=== PATIENT | male | born 1950 | race Caucasian/White ===

== ENCOUNTER 2021-05-11 11:48 | Inpatient (IN) | payer OTHER ==
[2021-05-11 12:42] VITALS: BMI 36.4
[2021-05-11] MEDS ORDERED: SODIUM CHLORIDE 0.9% 500 ML INFUS.BAG IV ONE (13:19)
[2021-05-11 13:28] LABS: VENOUS BASE EXCESS -5.8 mmol/L (-2-2); VENOUS O2 SATURATION 38.7 % (70-80); VENOUS PCO2 42.8 mmHg (38-52); VENOUS PH 7.298 (7.310-7.410)
[2021-05-11 13:29] LABS: BASO % 1.2 % (0-2.0); EOS % 0.7 % (0-4.5); HEMATOCRIT 42.4 % (35.4-49); HEMOGLOBIN 14.1 GM/dL (11.7-16.9); LYMPH % 21.3 % (8-40); MCH 30.7 pg (25.7-33.7); MCHC 33.1 g/dl (32.0-35.9); MEAN CELL VOLUME 92.6 fl (80-96); MEAN PLT VOLUME 8.2 fl (7.5-11.1); NEUT % 64.8 % (42.8-82.8); PLATELET COUNT 313 10^3/uL (134-434); RBC 4.58 M/mm3 (4.00-5.60); WHITE BLOOD COUNT 5.6 K/mm3 (4.0-10.0)
[2021-05-11 13:37] LABS: INR 2.64 (0.83-1.09); PROTHROMBIN TIME (PATIENT) 30.7 SEC (9.7-13.0)
[2021-05-11 13:39] LABS: ACTIVATED PTT 37.9 SECONDS (25.2-36.5)
[2021-05-11] MEDS ORDERED: WATER IVPB ONE (13:39)
[2021-05-11] MEDS ORDERED: DEXTROSE 5% IVPB ONE (13:39)
[2021-05-11] MEDS ORDERED: VANCOMYCIN IVPB ONE (13:39)
[2021-05-11] MEDS ORDERED: PIPERACILLIN/TAZOB 4.5 GM 4.5 GM in DEXTROSE 5%-WATER 100 ML IVPB ONE (13:39)
[2021-05-11] MEDS ORDERED: VANCOMYCIN 2,000 MG in DEXTROSE 5%-WATER - 500 ML IVPB ONE (13:47)
[2021-05-11] MEDS ORDERED: PIPERACILLIN/TAZOB 4.5 GM 4.5 GM/100 ML BAG IVPB ONE (13:49)
[2021-05-11 14:20] LABS: BLOOD UREA NITROGEN 30.9 mg/dL (7-18); CALCIUM 9.1 mg/dL (8.5-10.1); MAGNESIUM 2.2 mg/dL (1.8-2.4)
[2021-05-11 14:23] LABS: CREATININE 3.2 mg/dL (0.55-1.3)
[2021-05-11 14:25] LABS: BILIRUBIN,TOTAL 1.1 mg/dL (0.2-1); TOT PROT 6.4 g/dl (6.4-8.2)
[2021-05-11 14:30] LABS: LACTIC ACID 5.2 mmol/L (0.4-2.0)
[2021-05-11 14:33] LABS: ANISOCYTOSIS 1+; MACROCYTOSIS 0; PLATELET ESTIMATE NORMAL
[2021-05-11] MEDS ORDERED: SODIUM CHLORIDE 1,000 ML IV SCH ×3 (15:00→15:52)
[2021-05-11 16:43] LABS: EPI CELLS 24 /uL (0-25.1); HYALINE CASTS 11 /uL (0-3.1); URINE APPEARANCE CLEAR; URINE BACTERIA 6 /uL (0-1359); URINE BILIRUBIN NEGATIVE (NEGATIVE); URINE COLOR YELLOW; URINE GLUCOSE (UA) NEGATIVE (NEGATIVE); URINE KETONE TRACE (NEGATIVE); URINE LEUK ESTERASE TRACE (NEGATIVE); URINE NITRITE NEGATIVE (NEGATIVE); URINE PROTEIN 2+ (NEGATIVE); URINE RBC 9 /uL (0-23.9); URINE UROBILINOGEN 0.2 mg/dL (0.2-1.0); URINE WBC 61 /uL (0-25.8)
[2021-05-11 17:11] LABS: LACTIC ACID 3.8 mmol/L (0.4-2.0)
[2021-05-11] MEDS ORDERED: PIPERACILLIN/TAZOB 2.25 GM 2.25 GM/50 ML BAG IVPB ONE (21:14)
[2021-05-11] MEDS: PIPERACILLIN/TAZOB 2.25 GM 2.25 GM in DEXTROSE 5%-WATER - 50 ML IVPB SCH (21:16)
[2021-05-11] MEDS: HEPARIN NA (PORCINE) 5,000 UNITS/ML 1ML VIAL SQ SCH (23:07)
[2021-05-11] MEDS ORDERED: HEPARIN NA (PORCINE) 5,000 UNITS/ML 1ML VIAL ONE (23:13)
[2021-05-12] MEDS: PIPERACILLIN/TAZOB 2.25 GM 2.25 GM in DEXTROSE 5%-WATER - 50 ML IVPB SCH ×3 (03:20→19:52)
[2021-05-12] MEDS ORDERED: HEPARIN NA (PORCINE) 5,000 UNITS/ML 1ML VIAL ONE (09:10)
[2021-05-12] MEDS ORDERED: PIPERACILLIN/TAZOB 2.25 GM 2.25 GM/50 ML BAG IVPB ONE ×2 (09:10→19:29)
[2021-05-12] MEDS: HEPARIN NA (PORCINE) 5,000 UNITS/ML 1ML VIAL SQ SCH (09:17)
[2021-05-12] MEDS ORDERED: amLODIPine BESYLATE 5 MG TABLET (FP) PO SCH (10:00)
[2021-05-12 10:46] LABS: ALBUMIN 3.3 g/dl (3.4-5.0)
[2021-05-12 10:50] LABS: BLOOD UREA NITROGEN 28.4 mg/dL (7-18); MAGNESIUM 2.1 mg/dL (1.8-2.4)
[2021-05-12 10:54] LABS: BILIRUBIN,TOTAL 0.9 mg/dL (0.2-1); PHOSPHOROUS 4.5 mg/dL (2.5-4.9); TOT PROT 6.4 g/dl (6.4-8.2)
[2021-05-12 10:56] LABS: EOS % 3.1 % (0-4.5); HEMATOCRIT 45.7 % (35.4-49); HEMOGLOBIN 14.9 GM/dL (11.7-16.9); MCH 30.9 pg (25.7-33.7); MCHC 32.7 g/dl (32.0-35.9); MEAN CELL VOLUME 94.7 fl (80-96); MEAN PLT VOLUME 8.1 fl (7.5-11.1); MONO % 12.6 % (3.8-10.2); NEUT % 49.3 % (42.8-82.8); PLATELET COUNT 300 10^3/uL (134-434); RBC 4.83 M/mm3 (4.00-5.60); RDW 17.7 % (11.9-15.9); WHITE BLOOD COUNT 6.2 K/mm3 (4.0-10.0)
[2021-05-12 11:13] LABS: URIC ACID 13.8 mg/dL (2.6-7.2)
[2021-05-12] MEDS ORDERED: CARVEDILOL 12.5 MG TABLET (FP) ONE (12:46)
[2021-05-12] MEDS: CARVEDILOL 25 MG TABLET (FP) PO SCH ×2 (12:51→22:32)
[2021-05-12] MEDS ORDERED: SODIUM CHLORIDE 1,000 ML IV SCH (13:15)
[2021-05-12] MEDS: SODIUM BICARBONATE 650 MG TABLET PO SCH ×2 (15:37→22:32)
[2021-05-12] MEDS: ATORVASTATIN CA 40 MG TABLET (FP) PO SCH (22:32)
[2021-05-12] MEDS: APIXABAN 5 MG TABLET PO SCH (22:32)
[2021-05-13] MEDS: LATANOPROST 0.005% OPHTH SOLN 2.5ML BOTTLE OU SCH ×2 (00:21→21:45)
[2021-05-13] MEDS ORDERED: PIPERACILLIN/TAZOBACTAM 2.25 GM VIAL IVPB ONE ×3 (01:30→17:34)
[2021-05-13] MEDS ORDERED: DEXTROSE 5%-WATER - 50 ML IVPB ONE ×3 (01:31→17:34)
[2021-05-13] MEDS: PIPERACILLIN/TAZOB 2.25 GM 2.25 GM in DEXTROSE 5%-WATER - 50 ML IVPB SCH ×3 (02:32→17:43)
[2021-05-13] MEDS: SODIUM BICARBONATE 650 MG TABLET PO SCH ×3 (05:05→21:20)
[2021-05-13 09:04] LABS: BASO % 1.5 % (0-2.0); EOS % 2.7 % (0-4.5); HEMATOCRIT 40.8 % (35.4-49); LYMPH % 26.7 % (8-40); MCH 30.1 pg (25.7-33.7); MEAN CELL VOLUME 94.2 fl (80-96); MEAN PLT VOLUME 8.5 fl (7.5-11.1); MONO % 10.9 % (3.8-10.2); NEUT % 58.2 % (42.8-82.8); PLATELET COUNT 342 10^3/uL (134-434); RBC 4.33 M/mm3 (4.00-5.60); RDW 17.4 % (11.9-15.9); WHITE BLOOD COUNT 6.5 K/mm3 (4.0-10.0)
[2021-05-13 09:12] LABS: CHLORIDE 110 mmol/L (98-107); SODIUM 142 mmol/L (136-145)
[2021-05-13 09:14] LABS: CALCIUM 9.1 mg/dL (8.5-10.1)
[2021-05-13 09:15] LABS: ANION GAP 11 MMOL/L (8-16); BLOOD UREA NITROGEN 27.6 mg/dL (7-18); CO2 22 mmol/L (21-32); GLUCOSE,RANDOM 129 mg/dL (74-106); MAGNESIUM 2.1 mg/dL (1.8-2.4)
[2021-05-13 09:17] LABS: SGPT/ALT 19 U/L (13-61)
[2021-05-13 09:18] LABS: CREATININE 2.8 mg/dL (0.55-1.3); PHOSPHOROUS 3.8 mg/dL (2.5-4.9); SGOT/AST 21 U/L (15-37)
[2021-05-13 09:19] LABS: BILIRUBIN,TOTAL 1.2 mg/dL (0.2-1)
[2021-05-13 09:24] LABS: ALK PHOS 157 U/L (45-117); URIC ACID 13.6 mg/dL (2.6-7.2)
[2021-05-13 09:36] LABS: LACTIC ACID 3.4 mmol/L (0.4-2.0)
[2021-05-13] MEDS: APIXABAN 5 MG TABLET PO SCH ×2 (09:39→21:20)
[2021-05-13] MEDS: CARVEDILOL 25 MG TABLET (FP) PO SCH ×2 (09:39→21:20)
[2021-05-13] MEDS ORDERED: SODIUM CHLORIDE 1,000 ML IV SCH (14:30)
[2021-05-13] MEDS ORDERED: METOPROLOL TARTRATE 5 MG/5 ML VIAL IVPUSH PRN (14:54)
[2021-05-13] MEDS: ALLOPURINOL 100 MG TABLET (FP) PO SCH (15:57)
[2021-05-13] MEDS: ACETAMINOPHEN 325 MG TABLET (FP) PO PRN (16:04)
[2021-05-13] MEDS: ATORVASTATIN CA 40 MG TABLET (FP) PO SCH (21:20)
[2021-05-14] MEDS ORDERED: PIPERACILLIN/TAZOBACTAM 2.25 GM VIAL IVPB ONE ×3 (01:03→17:41)
[2021-05-14] MEDS ORDERED: DEXTROSE 5%-WATER - 50 ML IVPB ONE ×3 (01:03→17:41)
[2021-05-14] MEDS: PIPERACILLIN/TAZOB 2.25 GM 2.25 GM in DEXTROSE 5%-WATER - 50 ML IVPB SCH ×3 (01:15→18:22)
[2021-05-14] MEDS: SODIUM BICARBONATE 650 MG TABLET PO SCH ×3 (05:53→22:00)
[2021-05-14 08:02] LABS: BASO % 1.2 % (0-2.0); EOS % 2.7 % (0-4.5); HEMATOCRIT 39.4 % (35.4-49); HEMOGLOBIN 12.3 GM/dL (11.7-16.9); LYMPH % 21.8 % (8-40); MCH 29.5 pg (25.7-33.7); MCHC 31.2 g/dl (32.0-35.9); MEAN CELL VOLUME 94.4 fl (80-96); MEAN PLT VOLUME 8.3 fl (7.5-11.1); MONO % 14.7 % (3.8-10.2); NEUT % 59.6 % (42.8-82.8); PLATELET COUNT 288 10^3/uL (134-434); RBC 4.17 M/mm3 (4.00-5.60); RDW 17.7 % (11.9-15.9); WHITE BLOOD COUNT 5.3 K/mm3 (4.0-10.0)
[2021-05-14 08:13] LABS: CALCIUM 8.8 mg/dL (8.5-10.1)
[2021-05-14 08:14] LABS: ALBUMIN 2.7 g/dl (3.4-5.0)
[2021-05-14 08:16] LABS: CREATININE 2.6 mg/dL (0.55-1.3); PHOSPHOROUS 3.1 mg/dL (2.5-4.9)
[2021-05-14 08:18] LABS: BILIRUBIN,TOTAL 1.2 mg/dL (0.2-1); TOT PROT 5.5 g/dl (6.4-8.2)
[2021-05-14] MEDS: CARVEDILOL 25 MG TABLET (FP) PO SCH ×2 (11:17→22:00)
[2021-05-14] MEDS: ALLOPURINOL 100 MG TABLET (FP) PO SCH (11:17)
[2021-05-14] MEDS: APIXABAN 5 MG TABLET PO SCH ×2 (11:17→22:00)
[2021-05-14] MEDS: SODIUM CHLORIDE 0.45% 1,000 ML IV SCH (18:22)
[2021-05-14] MEDS: LATANOPROST 0.005% OPHTH SOLN 2.5ML BOTTLE OU SCH (22:00)
[2021-05-14] MEDS: ATORVASTATIN CA 40 MG TABLET (FP) PO SCH (22:00)
[2021-05-15] MEDS ORDERED: DEXTROSE 5%-WATER - 50 ML IVPB ONE ×3 (01:32→17:28)
[2021-05-15] MEDS ORDERED: PIPERACILLIN/TAZOBACTAM 2.25 GM VIAL IVPB ONE ×3 (01:32→17:28)
[2021-05-15] MEDS: PIPERACILLIN/TAZOB 2.25 GM 2.25 GM in DEXTROSE 5%-WATER - 50 ML IVPB SCH ×3 (03:37→17:57)
[2021-05-15] MEDS: SODIUM BICARBONATE 650 MG TABLET PO SCH ×3 (06:54→22:28)
[2021-05-15] MEDS: CARVEDILOL 25 MG TABLET (FP) PO SCH ×2 (10:52→22:28)
[2021-05-15] MEDS: APIXABAN 5 MG TABLET PO SCH ×2 (10:52→22:28)
[2021-05-15] MEDS: ACETAMINOPHEN 325 MG TABLET (FP) PO PRN ×2 (10:52→17:57)
[2021-05-15] MEDS: ALLOPURINOL 100 MG TABLET (FP) PO SCH (10:53)
[2021-05-15 12:47] LABS: ARTERIAL BLD GAS O2 SATURATION 98.3 % (95-98); ARTERIAL BLOOD GAS BASE EXCESS -4.6 mmol/L (-2-2); ARTERIAL BLOOD GAS PO2 115.8 mmHg (80-100)
[2021-05-15 12:49] LABS: ALLENS TEST POSITIVE
[2021-05-15] MEDS: POLYETHYLENE GLYCOL (HEALTHYLAX) 3350 17 GM PACKET PO SCH (17:57)
[2021-05-15] MEDS: LATANOPROST 0.005% OPHTH SOLN 2.5ML BOTTLE OU SCH (22:28)
[2021-05-15] MEDS: ATORVASTATIN CA 40 MG TABLET (FP) PO SCH (22:28)
[2021-05-15] MEDS: SODIUM CHLORIDE 0.45% 1,000 ML IV SCH (22:28)
[2021-05-15] MEDS: LORazepam 2 MG/ML SDV VIAL IVPUSH PRN (22:33)
[2021-05-16] MEDS: PIPERACILLIN/TAZOB 2.25 GM 2.25 GM in DEXTROSE 5%-WATER - 50 ML IVPB SCH ×3 (04:00→18:22)
[2021-05-16] MEDS ORDERED: DEXTROSE 5%-WATER - 50 ML IVPB ONE ×3 (04:04→18:10)
[2021-05-16] MEDS ORDERED: PIPERACILLIN/TAZOBACTAM 2.25 GM VIAL IVPB ONE ×3 (04:04→18:10)
[2021-05-16] MEDS: SODIUM BICARBONATE 650 MG TABLET PO SCH ×3 (05:21→21:50)
[2021-05-16] MEDS: LORazepam 2 MG/ML SDV VIAL IVPUSH PRN ×2 (08:43→22:43)
[2021-05-16 08:59] LABS: HEMATOCRIT 41.3 % (35.4-49); HEMOGLOBIN 12.8 GM/dL (11.7-16.9); MCH 30.1 pg (25.7-33.7); MCHC 31.1 g/dl (32.0-35.9); MEAN CELL VOLUME 96.9 fl (80-96); MEAN PLT VOLUME 8.1 fl (7.5-11.1); PLATELET COUNT 276 10^3/uL (134-434); RBC 4.26 M/mm3 (4.00-5.60); RDW 18.4 % (11.9-15.9); WHITE BLOOD COUNT 6.2 K/mm3 (4.0-10.0)
[2021-05-16 09:28] LABS: ALBUMIN 2.8 g/dl (3.4-5.0); BLOOD UREA NITROGEN 26.1 mg/dL (7-18); CALCIUM 8.7 mg/dL (8.5-10.1)
[2021-05-16 09:31] LABS: CREATININE 2.6 mg/dL (0.55-1.3)
[2021-05-16 09:32] LABS: LACTIC ACID 2.7 mmol/L (0.4-2.0)
[2021-05-16 09:33] LABS: BILIRUBIN,TOTAL 1.1 mg/dL (0.2-1); TOT PROT 5.8 g/dl (6.4-8.2)
[2021-05-16 09:54] LABS: ANISOCYTOSIS 0; HELMET CELLS 0; HOWELL-JOLLY BODIES 0; MACROCYTOSIS 0; OVALOCYTE 0; PLATELET ESTIMATE NORMAL; ROULEAU 0; SICKELED CELLS 0; TARGET CELLS 0; TEAR DROP CELLS 0; TOXIC GRANULATION 0
[2021-05-16] MEDS: ALLOPURINOL 100 MG TABLET (FP) PO SCH (11:22)
[2021-05-16] MEDS: CARVEDILOL 25 MG TABLET (FP) PO SCH ×2 (11:22→21:49)
[2021-05-16] MEDS: POLYETHYLENE GLYCOL (HEALTHYLAX) 3350 17 GM PACKET PO SCH (11:22)
[2021-05-16] MEDS: APIXABAN 5 MG TABLET PO SCH ×2 (11:22→21:49)
[2021-05-16] MEDS: SODIUM CHLORIDE 0.45% 1,000 ML IV SCH (18:22)
[2021-05-16] MEDS: ATORVASTATIN CA 40 MG TABLET (FP) PO SCH (21:49)
[2021-05-16] MEDS: LATANOPROST 0.005% OPHTH SOLN 2.5ML BOTTLE OU SCH (21:51)
[2021-05-17] MEDS ORDERED: PIPERACILLIN/TAZOBACTAM 2.25 GM VIAL IVPB ONE ×2 (01:08→09:36)
[2021-05-17] MEDS ORDERED: DEXTROSE 5%-WATER - 50 ML IVPB ONE ×2 (01:09→09:36)
[2021-05-17] MEDS: PIPERACILLIN/TAZOB 2.25 GM 2.25 GM in DEXTROSE 5%-WATER - 50 ML IVPB SCH ×2 (01:12→10:00)
[2021-05-17] MEDS: SODIUM BICARBONATE 650 MG TABLET PO SCH ×3 (06:13→21:08)
[2021-05-17 07:28] LABS: BASO % 2.7 % (0-2.0); EOS % 1.5 % (0-4.5); HEMATOCRIT 42.5 % (35.4-49); HEMOGLOBIN 13.2 GM/dL (11.7-16.9); LYMPH % 28.8 % (8-40); MCH 29.9 pg (25.7-33.7); MEAN CELL VOLUME 96.5 fl (80-96); MEAN PLT VOLUME 8.2 fl (7.5-11.1); MONO % 12.7 % (3.8-10.2); NEUT % 54.3 % (42.8-82.8); PLATELET COUNT 269 10^3/uL (134-434); RDW 18.4 % (11.9-15.9); WHITE BLOOD COUNT 6.9 K/mm3 (4.0-10.0)
[2021-05-17] MEDS: CARVEDILOL 25 MG TABLET (FP) PO SCH ×2 (10:00→21:08)
[2021-05-17] MEDS: ALLOPURINOL 100 MG TABLET (FP) PO SCH (10:00)
[2021-05-17] MEDS: POLYETHYLENE GLYCOL (HEALTHYLAX) 3350 17 GM PACKET PO SCH ×2 (10:00→10:10)
[2021-05-17] MEDS: APIXABAN 5 MG TABLET PO SCH ×2 (10:00→21:08)
[2021-05-17] MEDS ORDERED: POLYETHYLENE GLYCOL (HEALTHYLAX) 3350 17 GM PACKET PO PRN (10:58)
[2021-05-17] MEDS ORDERED: ALBUTEROL SO4 HFA INHALER IH PRN (10:59)
[2021-05-17 11:51] LABS: LACTIC ACID 2.6 mmol/L (0.4-2.0)
[2021-05-17 11:54] LABS: CHLORIDE 87 mmol/L (98-107); SODIUM 132 mmol/L (136-145)
[2021-05-17 11:57] LABS: ALBUMIN 2.3 g/dl (3.4-5.0); ANION GAP 24 MMOL/L (8-16); BLOOD UREA NITROGEN 24.7 mg/dL (7-18); CO2 20 mmol/L (21-32); MAGNESIUM 1.8 mg/dL (1.8-2.4)
[2021-05-17 11:59] LABS: URIC ACID 9.3 mg/dL (2.6-7.2)
[2021-05-17 12:00] LABS: CREATININE 2.6 mg/dL (0.55-1.3); PHOSPHOROUS 3.6 mg/dL (2.5-4.9); SGOT/AST 16 U/L (15-37); SGPT/ALT 15 U/L (13-61)
[2021-05-17 12:01] LABS: BILIRUBIN,TOTAL 0.8 mg/dL (0.2-1)
[2021-05-17 12:02] LABS: TOT PROT 5.8 g/dl (6.4-8.2)
[2021-05-17 12:03] LABS: ALK PHOS 140 U/L (45-117)
[2021-05-17 12:06] LABS: CALCIUM 7.3 mg/dL (8.5-10.1); GLUCOSE,RANDOM 725 mg/dL (74-106)
[2021-05-17] MEDS ORDERED: POTASSIUM CHLORIDE ORAL LIQUID 20 MEQ/15 ML PO ONE (12:30)
[2021-05-17 14:27] LABS: BLOOD UREA NITROGEN 28.5 mg/dL (7-18)
[2021-05-17 14:30] LABS: CREATININE 2.7 mg/dL (0.55-1.3)
[2021-05-17 14:34] LABS: ALBUMIN 2.9 g/dl (3.4-5.0); CALCIUM 8.9 mg/dL (8.5-10.1); LACTIC ACID 2.5 mmol/L (0.4-2.0)
[2021-05-17] MEDS: ATORVASTATIN CA 40 MG TABLET (FP) PO SCH (21:08)
[2021-05-17] MEDS: LATANOPROST 0.005% OPHTH SOLN 2.5ML BOTTLE OU SCH (21:09)
[2021-05-17] MEDS: LORazepam 2 MG/ML SDV VIAL IVPUSH PRN (22:00)
[2021-05-18] MEDS: SODIUM BICARBONATE 650 MG TABLET PO SCH ×3 (05:54→21:32)
[2021-05-18] MEDS: APIXABAN 5 MG TABLET PO SCH ×2 (09:59→21:31)
[2021-05-18] MEDS: ALLOPURINOL 100 MG TABLET (FP) PO SCH (09:59)
[2021-05-18] MEDS: CARVEDILOL 25 MG TABLET (FP) PO SCH ×2 (09:59→21:31)
[2021-05-18] MEDS ORDERED: SACUBITRIL/VALSARTAN 24 MG-26 MG TABLET PO SCH (10:15)
[2021-05-18] MEDS ORDERED: SACUBITRIL/VALSARTAN 49 MG-51 MG TABLET PO SCH (10:15)
[2021-05-18] MEDS: TORSEMIDE 20 MG TABLET (FP) PO SCH (13:55)
[2021-05-18] MEDS: ATORVASTATIN CA 40 MG TABLET (FP) PO SCH (21:31)
[2021-05-18] MEDS: LATANOPROST 0.005% OPHTH SOLN 2.5ML BOTTLE OU SCH (21:32)
[2021-05-18] MEDS ORDERED: QUEtiapine FUMARATE 25 MG TABLET PO SCH (22:00)
[2021-05-19] MEDS: SODIUM BICARBONATE 650 MG TABLET PO SCH ×3 (06:55→21:12)
[2021-05-19 08:29] LABS: CALCIUM 8.4 mg/dL (8.5-10.1)
[2021-05-19 08:30] LABS: ALBUMIN 2.6 g/dl (3.4-5.0); BLOOD UREA NITROGEN 25.7 mg/dL (7-18); MAGNESIUM 1.8 mg/dL (1.8-2.4)
[2021-05-19 08:32] LABS: PHOSPHOROUS 2.8 mg/dL (2.5-4.9)
[2021-05-19 08:33] LABS: CREATININE 2.3 mg/dL (0.55-1.3)
[2021-05-19 08:34] LABS: TOT PROT 5.6 g/dl (6.4-8.2)
[2021-05-19 08:35] LABS: BASO % 5.9 % (0-2.0); EOS % 3.1 % (0-4.5); HEMOGLOBIN 13.6 GM/dL (11.7-16.9); LYMPH % 26.2 % (8-40); MCHC 31.7 g/dl (32.0-35.9); MEAN CELL VOLUME 94.8 fl (80-96); MEAN PLT VOLUME 8.4 fl (7.5-11.1); MONO % 12.6 % (3.8-10.2); NEUT % 52.2 % (42.8-82.8); PLATELET COUNT 232 10^3/uL (134-434); RBC 4.54 M/mm3 (4.00-5.60); RDW 18.3 % (11.9-15.9); WHITE BLOOD COUNT 5.9 K/mm3 (4.0-10.0)
[2021-05-19] MEDS: CARVEDILOL 25 MG TABLET (FP) PO SCH ×2 (10:44→21:13)
[2021-05-19] MEDS: TORSEMIDE 20 MG TABLET (FP) PO SCH (10:44)
[2021-05-19] MEDS: ALLOPURINOL 100 MG TABLET (FP) PO SCH (10:44)
[2021-05-19] MEDS: APIXABAN 5 MG TABLET PO SCH ×2 (10:44→21:13)
[2021-05-19 11:06] LABS: ANISOCYTOSIS 0; MACROCYTOSIS 0
[2021-05-19 11:10] LABS: PLATELET ESTIMATE NORMAL
[2021-05-19] MEDS ORDERED: METOPROLOL TARTRATE 5 MG/5 ML VIAL IVPB PRN (20:23)
[2021-05-19] MEDS ORDERED: ALBUTEROL SO4 HFA INHALER IH PRN (20:23)
[2021-05-19] MEDS ORDERED: POLYETHYLENE GLYCOL (HEALTHYLAX) 3350 17 GM PACKET PO PRN (20:23)
[2021-05-19] MEDS ORDERED: ACETAMINOPHEN 325 MG TABLET (FP) PO PRN (20:23)
[2021-05-19] MEDS ORDERED: ATORVASTATIN CA 40 MG TABLET (FP) PO SCH (22:00)
[2021-05-19] MEDS ORDERED: QUEtiapine FUMARATE 25 MG TABLET PO SCH (22:00)
[2021-05-19] MEDS ORDERED: LATANOPROST 0.005% OPHTH SOLN 2.5ML BOTTLE OU SCH (22:00)
[2021-05-20] MEDS: SODIUM BICARBONATE 650 MG TABLET PO SCH ×2 (06:15→13:19)
[2021-05-20] MEDS: CARVEDILOL 25 MG TABLET (FP) PO SCH (09:21)
[2021-05-20] MEDS: APIXABAN 5 MG TABLET PO SCH (09:22)
[2021-05-20] MEDS ORDERED: ALLOPURINOL 100 MG TABLET (FP) PO SCH ×2 (10:00→13:30)
[2021-05-20] MEDS ORDERED: TORSEMIDE 20 MG TABLET (FP) PO SCH (10:00)
[2021-05-20 12:08] LABS: SARS-CoV-2 NAA Not Detected (Not Detected)
[2021-05-20 14:07] LABS: CALCIUM 8.7 mg/dL (8.5-10.1)
[2021-05-20 14:08] LABS: BLOOD UREA NITROGEN 21.2 mg/dL (7-18)
[2021-05-20 16:59] VITALS: BP 134/76; PULSE 92; TEMP 99
[2021-05-20] MEDS ORDERED: SODIUM BICARBONATE 650 MG TABLET PO SCH (22:00)
== END 2021-05-20 14:50 | DRG 194 ==
LOC: JER 11:48 → JERBED 14:44 → J4S 05-12 21:14 → J4W 05-13 20:52 → J5S 05-19 20:11
PROVIDERS: ADMIT Internal Medicine; ATTEND Internal Medicine
DX: J18.9 Pneumonia, unspecified organism (principal); I13.0 Hypertensive heart and chronic kidney disease with heart failure and stage 1 through stage 4 chronic kidney disease, or unspecified chronic kidney disease; I50.42 Chronic combined systolic (congestive) and diastolic (congestive) heart failure; E87.2 Acidosis; N17.9 Acute kidney failure, unspecified; I48.19 Other persistent atrial fibrillation; E11.22 Type 2 diabetes mellitus with diabetic chronic kidney disease; N18.30 Chronic kidney disease, stage 3 unspecified; G93.89 Other specified disorders of brain; E78.5 Hyperlipidemia, unspecified; I25.119 Atherosclerotic heart disease of native coronary artery with unspecified angina pectoris; Z98.61 Coronary angioplasty status; E66.9 Obesity, unspecified; Z68.36 Body mass index [BMI] 36.0-36.9, adult
CPT/HCPCS: 36415; 36600; 71045-TC-FY; 71250-TC; 76700-TC; 76775-TC; 80048; 80053; 81003; 82550; 82570; 82803; 82962; 83605; 83735; 83880; 84100; 84156; 84300; 84484; 84550; 85025; 85610; 85730; 87040; 87086; 87899; 93005; 93010; 97116-GP; 97162-GP; 99285-25; C9803; J1644; U0003; U0005

== ENCOUNTER 2021-05-23 04:27 | Inpatient (IN) | payer OTHER ==
[2021-05-23] MEDS ORDERED: PIPERACILLIN/TAZOB 3.375 GM 3.375 GM in DEXTROSE 5%-WATER - 50 ML IVPB ONE (08:46)
[2021-05-23] MEDS ORDERED: PIPERACILLIN/TAZOB 3.375 GM 3.375 GM/50 ML BAG IVPB ONE ×2 (09:06→18:41)
[2021-05-23 10:14] LABS: BASO % 0.7 % (0-2.0); EOS % 2.8 % (0-4.5); HEMATOCRIT 40.8 % (35.4-49); HEMOGLOBIN 13.2 GM/dL (11.7-16.9); LYMPH % 25.3 % (8-40); MCH 30.2 pg (25.7-33.7); MCHC 32.2 g/dl (32.0-35.9); MEAN CELL VOLUME 93.7 fl (80-96); MEAN PLT VOLUME 8.1 fl (7.5-11.1); MONO % 14.9 % (3.8-10.2); NEUT % 56.3 % (42.8-82.8); PLATELET COUNT 267 10^3/uL (134-434); RBC 4.35 M/mm3 (4.00-5.60); RDW 17.6 % (11.9-15.9); WHITE BLOOD COUNT 6.1 K/mm3 (4.0-10.0)
[2021-05-23 10:23] LABS: INR 2.31 (0.83-1.09); PROTHROMBIN TIME (PATIENT) 26.8 SEC (9.7-13.0)
[2021-05-23 10:26] LABS: ACTIVATED PTT 37.6 SECONDS (25.2-36.5)
[2021-05-23 10:36] LABS: ALBUMIN 2.5 g/dl (3.4-5.0); BLOOD UREA NITROGEN 22.2 mg/dL (7-18)
[2021-05-23 10:38] LABS: CREATININE 1.8 mg/dL (0.55-1.3)
[2021-05-23 10:40] LABS: BILIRUBIN,TOTAL 1.2 mg/dL (0.2-1); TOT PROT 5.9 g/dl (6.4-8.2)
[2021-05-23] MEDS ORDERED: ACETAMINOPHEN 1000 MG/100 ML BAG IVPB ONE (10:46)
[2021-05-23] MEDS ORDERED: SODIUM CHLORIDE 0.9% 500 ML INFUS.BAG IV ONE ×3 (10:46→13:13)
[2021-05-23] MEDS ORDERED: ACETAMINOPHEN INJECTION 100 ML IVPB ONE (10:59)
[2021-05-23] MEDS ORDERED: VANCOMYCIN 1 GM in D5W (PRE-DOCKED) 1,000 MG/250 ML IVPB ONE (11:28)
[2021-05-23] MEDS ORDERED: MIDAZOLAM HCL 2 MG/2 ML SINGLE DOSE VIAL IVPUSH ONE (12:23)
[2021-05-23 12:31] LABS: ARTERIAL BLOOD GAS BASE EXCESS 6.1 mmol/L (-2-2); ARTERIAL BLOOD GAS PO2 100.7 mmHg (80-100)
[2021-05-23 12:32] LABS: ALLENS TEST POSITIVE
[2021-05-23] MEDS ORDERED: VANCOMYCIN 1 GRAM (PRE-DOCKED) 1,000 MG/250 ML BAG IVPB ONE (13:04)
[2021-05-23] MEDS ORDERED: ALBUTEROL SO4 HFA INHALER IH PRN (15:24)
[2021-05-23] MEDS ORDERED: DEXTROSE 5%-NORMAL SALINE 1,000 ML IV SCH (15:45)
[2021-05-23 16:02] LABS: EPI CELLS 8 /uL (0-25.1); HYALINE CASTS 0 /uL (0-3.1); URINE APPEARANCE CLEAR; URINE BACTERIA 8 /uL (0-1359); URINE BILIRUBIN NEGATIVE (NEGATIVE); URINE COLOR YELLOW; URINE GLUCOSE (UA) NEGATIVE (NEGATIVE); URINE KETONE NEGATIVE (NEGATIVE); URINE LEUK ESTERASE TRACE (NEGATIVE); URINE NITRITE NEGATIVE (NEGATIVE); URINE PROTEIN 2+ (NEGATIVE); URINE RBC 1033 /uL (0-23.9); URINE UROBILINOGEN 0.2 mg/dL (0.2-1.0); URINE WBC 20 /uL (0-25.8)
[2021-05-23] MEDS: INSULIN SLIDING SCALE (NOVOLOG) 1 VIAL SQ SCH (17:10)
[2021-05-23] MEDS: PIPERACILLIN/TAZOB 3.375 GM 3.375 GM in DEXTROSE 5%-WATER - 50 ML IVPB SCH (19:16)
[2021-05-23] MEDS: LATANOPROST 0.005% OPHTH SOLN 2.5ML BOTTLE OU SCH (23:07)
[2021-05-24 01:27] VITALS: BMI 35.5
[2021-05-24] MEDS ORDERED: DEXTROSE 5%-WATER - 50 ML IVPB ONE ×3 (01:51→10:22)
[2021-05-24] MEDS ORDERED: PIPERACILLIN/TAZOBACTAM 3.375 GM VIAL IVPB ONE ×3 (01:51→10:22)
[2021-05-24] MEDS: PIPERACILLIN/TAZOB 3.375 GM 3.375 GM in DEXTROSE 5%-WATER - 50 ML IVPB SCH ×3 (02:59→16:59)
[2021-05-24] MEDS: INSULIN SLIDING SCALE (NOVOLOG) 1 VIAL SQ SCH ×3 (07:02→16:16)
[2021-05-24] MEDS: SODIUM BICARBONATE 650 MG TABLET PO SCH ×3 (07:03→22:29)
[2021-05-24] MEDS: MULTIVITAMINS (DAILY MVI) TABLET (FP) PO SCH (10:17)
[2021-05-24] MEDS: CHOLECALCIFEROL (VIT D3) 1,000 UNIT (25 MCG) TABLET PO SCH (10:17)
[2021-05-24] MEDS ORDERED: DEXTROSE 5%-NORMAL SALINE 1,000 ML IV SCH ×2 (11:37→13:10)
[2021-05-24] MEDS ORDERED: QUEtiapine FUMARATE 50 MG TABLET PO SCH (11:45)
[2021-05-24] MEDS: ALLOPURINOL 100 MG TABLET (FP) PO SCH (11:52)
[2021-05-24 19:30] LABS: BASO % 1.3 % (0-2.0); EOS % 2.9 % (0-4.5); HEMATOCRIT 38.7 % (35.4-49); HEMOGLOBIN 12.2 GM/dL (11.7-16.9); LYMPH % 28.6 % (8-40); MCH 29.6 pg (25.7-33.7); MCHC 31.5 g/dl (32.0-35.9); MEAN CELL VOLUME 93.8 fl (80-96); MEAN PLT VOLUME 8.4 fl (7.5-11.1); MONO % 11.7 % (3.8-10.2); NEUT % 55.5 % (42.8-82.8); PLATELET COUNT 140 10^3/uL (134-434); RBC 4.12 M/mm3 (4.00-5.60); RDW 17.7 % (11.9-15.9); WHITE BLOOD COUNT 4.4 K/mm3 (4.0-10.0)
[2021-05-24 19:42] LABS: ALBUMIN 2.1 g/dl (3.4-5.0); BLOOD UREA NITROGEN 23.2 mg/dL (7-18)
[2021-05-24 19:47] LABS: BILIRUBIN,TOTAL 1.1 mg/dL (0.2-1); TOT PROT 5.2 g/dl (6.4-8.2)
[2021-05-24] MEDS: QUEtiapine FUMARATE 25 MG TABLET PO SCH (22:29)
[2021-05-24] MEDS: LATANOPROST 0.005% OPHTH SOLN 2.5ML BOTTLE OU SCH (22:31)
[2021-05-25] MEDS ORDERED: DEXTROSE 5%-WATER - 50 ML IVPB ONE ×3 (00:01→12:47)
[2021-05-25] MEDS ORDERED: PIPERACILLIN/TAZOBACTAM 3.375 GM VIAL IVPB ONE ×3 (00:01→12:47)
[2021-05-25] MEDS: PIPERACILLIN/TAZOB 3.375 GM 3.375 GM in DEXTROSE 5%-WATER - 50 ML IVPB SCH ×3 (01:18→17:53)
[2021-05-25] MEDS: INSULIN SLIDING SCALE (NOVOLOG) 1 VIAL SQ SCH ×3 (06:11→17:53)
[2021-05-25] MEDS: SODIUM BICARBONATE 650 MG TABLET PO SCH ×3 (06:13→22:55)
[2021-05-25] MEDS: CHOLECALCIFEROL (VIT D3) 1,000 UNIT (25 MCG) TABLET PO SCH (09:07)
[2021-05-25] MEDS: MULTIVITAMINS (DAILY MVI) TABLET (FP) PO SCH (09:07)
[2021-05-25] MEDS: QUEtiapine FUMARATE 25 MG TABLET PO SCH (09:07)
[2021-05-25] MEDS: ALLOPURINOL 100 MG TABLET (FP) PO SCH (09:08)
[2021-05-25 09:37] LABS: CHLORIDE 113 mmol/L (98-107); SODIUM 150 mmol/L (136-145)
[2021-05-25 09:44] LABS: BLOOD UREA NITROGEN 21.4 mg/dL (7-18); CALCIUM 7.9 mg/dL (8.5-10.1); GLUCOSE,RANDOM 105 mg/dL (74-106)
[2021-05-25 09:45] LABS: CO2 29 mmol/L (21-32)
[2021-05-25 09:47] LABS: SGPT/ALT 11 U/L (13-61)
[2021-05-25 09:48] LABS: SGOT/AST 23 U/L (15-37)
[2021-05-25 09:49] LABS: BILIRUBIN,TOTAL 0.8 mg/dL (0.2-1); TOT PROT 5.1 g/dl (6.4-8.2)
[2021-05-25 09:50] LABS: ALK PHOS 95 U/L (45-117); ANION GAP 7 MMOL/L (8-16)
[2021-05-25] MEDS: KCL 10 MEQ IVPB 10 MEQ/100 ML INFUS.BAG IVPB SCH ×3 (11:18→13:17)
[2021-05-25] MEDS ORDERED: OLANZapine 5 MG TABLET PO SCH (22:00)
[2021-05-25] MEDS: APIXABAN 5 MG TABLET PO SCH (22:55)
[2021-05-25] MEDS: CARVEDILOL 6.25 MG TABLET (FP) PO SCH (22:55)
[2021-05-25] MEDS: OLANZapine 5 MG TABLET PO SCH (23:50)
[2021-05-25] MEDS: LATANOPROST 0.005% OPHTH SOLN 2.5ML BOTTLE OU SCH (23:50)
[2021-05-26] MEDS ORDERED: PIPERACILLIN/TAZOBACTAM 3.375 GM VIAL IVPB ONE ×3 (00:52→16:57)
[2021-05-26] MEDS ORDERED: DEXTROSE 5%-WATER - 50 ML IVPB ONE ×3 (00:52→16:57)
[2021-05-26] MEDS: PIPERACILLIN/TAZOB 3.375 GM 3.375 GM in DEXTROSE 5%-WATER - 50 ML IVPB SCH ×3 (02:40→18:02)
[2021-05-26] MEDS ORDERED: MELATONIN 5 MG TABLETS PO ONE (02:42)
[2021-05-26] MEDS: INSULIN SLIDING SCALE (NOVOLOG) 1 VIAL SQ SCH ×3 (06:07→17:19)
[2021-05-26] MEDS: SODIUM BICARBONATE 650 MG TABLET PO SCH ×3 (06:07→23:00)
[2021-05-26 09:09] LABS: CALCIUM 8.3 mg/dL (8.5-10.1)
[2021-05-26 09:10] LABS: BLOOD UREA NITROGEN 18.9 mg/dL (7-18)
[2021-05-26 09:12] LABS: CREATININE 2.1 mg/dL (0.55-1.3)
[2021-05-26] MEDS: MULTIVITAMINS (DAILY MVI) TABLET (FP) PO SCH (09:37)
[2021-05-26] MEDS: OLANZapine 5 MG TABLET PO SCH ×2 (09:37→23:00)
[2021-05-26] MEDS: APIXABAN 5 MG TABLET PO SCH ×2 (09:37→23:00)
[2021-05-26] MEDS: CHOLECALCIFEROL (VIT D3) 1,000 UNIT (25 MCG) TABLET PO SCH (09:37)
[2021-05-26] MEDS: ALLOPURINOL 100 MG TABLET (FP) PO SCH (09:37)
[2021-05-26] MEDS: CARVEDILOL 6.25 MG TABLET (FP) PO SCH (09:37)
[2021-05-26] MEDS ORDERED: POTASSIUM CHLORIDE ORAL LIQUID 20 MEQ/15 ML PO ONE (11:37)
[2021-05-26] MEDS: CARVEDILOL 12.5 MG TABLET (FP) PO SCH (23:00)
[2021-05-26] MEDS: LATANOPROST 0.005% OPHTH SOLN 2.5ML BOTTLE OU SCH (23:00)
[2021-05-27] MEDS ORDERED: MELATONIN 5 MG TABLETS PO ONE (00:36)
[2021-05-27] MEDS ORDERED: PIPERACILLIN/TAZOBACTAM 3.375 GM VIAL IVPB ONE ×3 (01:32→17:01)
[2021-05-27] MEDS ORDERED: DEXTROSE 5%-WATER - 50 ML IVPB ONE ×3 (01:32→17:01)
[2021-05-27] MEDS: PIPERACILLIN/TAZOB 3.375 GM 3.375 GM in DEXTROSE 5%-WATER - 50 ML IVPB SCH ×3 (01:39→17:33)
[2021-05-27] MEDS ORDERED: LORazepam 2 MG/ML SDV VIAL IVPUSH ONE (04:46)
[2021-05-27] MEDS: SODIUM BICARBONATE 650 MG TABLET PO SCH ×3 (05:17→22:34)
[2021-05-27] MEDS: INSULIN SLIDING SCALE (NOVOLOG) 1 VIAL SQ SCH ×3 (06:46→17:27)
[2021-05-27] MEDS: CHOLECALCIFEROL (VIT D3) 1,000 UNIT (25 MCG) TABLET PO SCH (09:18)
[2021-05-27] MEDS: ZINC OXIDE 20% TOPICAL OINTMENT 30 GM TUBE TP SCH ×2 (09:18→22:37)
[2021-05-27] MEDS: ALLOPURINOL 100 MG TABLET (FP) PO SCH (09:18)
[2021-05-27] MEDS: MULTIVITAMINS (DAILY MVI) TABLET (FP) PO SCH (09:18)
[2021-05-27] MEDS: APIXABAN 5 MG TABLET PO SCH ×2 (09:18→22:34)
[2021-05-27] MEDS: OLANZapine 5 MG TABLET PO SCH ×2 (09:18→22:35)
[2021-05-27] MEDS: CARVEDILOL 12.5 MG TABLET (FP) PO SCH ×2 (09:18→22:34)
[2021-05-27 09:34] LABS: HEMATOCRIT 38.6 % (35.4-49); HEMOGLOBIN 12.8 GM/dL (11.7-16.9); MCH 30.6 pg (25.7-33.7); MCHC 33.1 g/dl (32.0-35.9); MEAN CELL VOLUME 92.7 fl (80-96); MEAN PLT VOLUME 8.9 fl (7.5-11.1); PLATELET COUNT 186 10^3/uL (134-434); RBC 4.17 M/mm3 (4.00-5.60); RDW 17.5 % (11.9-15.9); WHITE BLOOD COUNT 5.1 K/mm3 (4.0-10.0)
[2021-05-27 09:55] LABS: ALBUMIN 2.2 g/dl (3.4-5.0); BLOOD UREA NITROGEN 19.3 mg/dL (7-18); CALCIUM 8.7 mg/dL (8.5-10.1)
[2021-05-27 09:59] LABS: CREATININE 1.9 mg/dL (0.55-1.3)
[2021-05-27 10:01] LABS: BILIRUBIN,TOTAL 0.6 mg/dL (0.2-1); TOT PROT 5.6 g/dl (6.4-8.2)
[2021-05-27 11:02] LABS: ANISOCYTOSIS 2+; MACROCYTOSIS 0; TEAR DROP CELLS 1+
[2021-05-27] MEDS ORDERED: MELATONIN 5 MG TABLETS PO PRN (22:00)
[2021-05-27] MEDS: LATANOPROST 0.005% OPHTH SOLN 2.5ML BOTTLE OU SCH (22:37)
[2021-05-28] MEDS ORDERED: DEXTROSE 5%-WATER - 50 ML IVPB ONE ×2 (01:34→09:50)
[2021-05-28] MEDS ORDERED: PIPERACILLIN/TAZOBACTAM 3.375 GM VIAL IVPB ONE ×2 (01:34→09:50)
[2021-05-28] MEDS: PIPERACILLIN/TAZOB 3.375 GM 3.375 GM in DEXTROSE 5%-WATER - 50 ML IVPB SCH ×2 (01:39→10:18)
[2021-05-28] MEDS: SODIUM BICARBONATE 650 MG TABLET PO SCH ×3 (05:50→21:43)
[2021-05-28] MEDS: INSULIN SLIDING SCALE (NOVOLOG) 1 VIAL SQ SCH ×3 (06:06→16:58)
[2021-05-28] MEDS: APIXABAN 5 MG TABLET PO SCH ×2 (10:17→21:42)
[2021-05-28] MEDS: CARVEDILOL 12.5 MG TABLET (FP) PO SCH ×2 (10:17→21:56)
[2021-05-28] MEDS: MULTIVITAMINS (DAILY MVI) TABLET (FP) PO SCH (10:17)
[2021-05-28] MEDS: ZINC OXIDE 20% TOPICAL OINTMENT 30 GM TUBE TP SCH ×2 (10:18→21:42)
[2021-05-28] MEDS: CHOLECALCIFEROL (VIT D3) 1,000 UNIT (25 MCG) TABLET PO SCH (10:18)
[2021-05-28] MEDS: ALLOPURINOL 100 MG TABLET (FP) PO SCH (10:18)
[2021-05-28] MEDS: OLANZapine 5 MG TABLET PO SCH ×2 (10:19→21:43)
[2021-05-28] MEDS: AMOX TR/POT CLAV 875MG/125MG TABLETS (FP) PO SCH (17:20)
[2021-05-28] MEDS: LATANOPROST 0.005% OPHTH SOLN 2.5ML BOTTLE OU SCH (21:42)
[2021-05-29] MEDS: SODIUM BICARBONATE 650 MG TABLET PO SCH ×3 (06:18→21:23)
[2021-05-29] MEDS: INSULIN SLIDING SCALE (NOVOLOG) 1 VIAL SQ SCH ×3 (06:24→17:21)
[2021-05-29] MEDS: CHOLECALCIFEROL (VIT D3) 1,000 UNIT (25 MCG) TABLET PO SCH (10:17)
[2021-05-29] MEDS: AMOX TR/POT CLAV 875MG/125MG TABLETS (FP) PO SCH (10:17)
[2021-05-29] MEDS: CARVEDILOL 12.5 MG TABLET (FP) PO SCH (10:17)
[2021-05-29] MEDS: MULTIVITAMINS (DAILY MVI) TABLET (FP) PO SCH (10:17)
[2021-05-29] MEDS: OLANZapine 5 MG TABLET PO SCH ×2 (10:17→21:23)
[2021-05-29] MEDS: ZINC OXIDE 20% TOPICAL OINTMENT 30 GM TUBE TP SCH ×2 (10:17→21:23)
[2021-05-29] MEDS: APIXABAN 5 MG TABLET PO SCH ×2 (10:17→21:23)
[2021-05-29] MEDS ORDERED: CARVEDILOL 6.25 MG TABLET (FP) PO ONE (11:45)
[2021-05-29] MEDS: ALLOPURINOL 100 MG TABLET (FP) PO SCH (11:47)
[2021-05-29 12:24] LABS: BASO % 1.3 % (0-2.0); HEMATOCRIT 42.5 % (35.4-49); HEMOGLOBIN 13.2 GM/dL (11.7-16.9); LYMPH % 35.2 % (8-40); MCH 29.2 pg (25.7-33.7); MEAN CELL VOLUME 94.2 fl (80-96); MEAN PLT VOLUME 9.5 fl (7.5-11.1); MONO % 9.8 % (3.8-10.2); NEUT % 52.7 % (42.8-82.8); PLATELET COUNT 365 10^3/uL (134-434); RBC 4.51 M/mm3 (4.00-5.60); RDW 17.7 % (11.9-15.9); WHITE BLOOD COUNT 7.5 K/mm3 (4.0-10.0)
[2021-05-29 12:59] LABS: ALBUMIN 2.4 g/dl (3.4-5.0); BLOOD UREA NITROGEN 31.8 mg/dL (7-18)
[2021-05-29 13:02] LABS: CREATININE 3.2 mg/dL (0.55-1.3)
[2021-05-29 13:03] LABS: TOT PROT 6.4 g/dl (6.4-8.2)
[2021-05-29] MEDS: AMOX TR/POT CLAV 500MG/125MG TABLETS (FP) PO SCH (17:18)
[2021-05-29] MEDS: LATANOPROST 0.005% OPHTH SOLN 2.5ML BOTTLE OU SCH (21:23)
[2021-05-29] MEDS: CARVEDILOL 25 MG TABLET (FP) PO SCH (21:26)
[2021-05-30] MEDS: SODIUM BICARBONATE 650 MG TABLET PO SCH ×3 (05:43→21:12)
[2021-05-30] MEDS: INSULIN SLIDING SCALE (NOVOLOG) 1 VIAL SQ SCH ×3 (06:01→17:09)
[2021-05-30] MEDS: MULTIVITAMINS (DAILY MVI) TABLET (FP) PO SCH (10:41)
[2021-05-30] MEDS: APIXABAN 5 MG TABLET PO SCH ×2 (10:41→21:11)
[2021-05-30] MEDS: CHOLECALCIFEROL (VIT D3) 1,000 UNIT (25 MCG) TABLET PO SCH (10:41)
[2021-05-30] MEDS: AMOX TR/POT CLAV 500MG/125MG TABLETS (FP) PO SCH ×2 (10:41→17:13)
[2021-05-30] MEDS: OLANZapine 5 MG TABLET PO SCH ×2 (10:41→21:24)
[2021-05-30] MEDS: CARVEDILOL 25 MG TABLET (FP) PO SCH ×2 (10:41→21:12)
[2021-05-30] MEDS: ZINC OXIDE 20% TOPICAL OINTMENT 30 GM TUBE TP SCH ×2 (10:42→21:24)
[2021-05-30] MEDS: ALLOPURINOL 100 MG TABLET (FP) PO SCH (10:42)
[2021-05-30] MEDS ORDERED: ACETAMINOPHEN 325 MG TABLET (FP) PO PRN (16:22)
[2021-05-30] MEDS ORDERED: ALBUTEROL SO4 HFA INHALER IH PRN (19:29)
[2021-05-30] MEDS: MELATONIN 5 MG TABLETS PO PRN (21:12)
[2021-05-30] MEDS: LATANOPROST 0.005% OPHTH SOLN 2.5ML BOTTLE OU SCH (21:14)
[2021-05-31] MEDS: SODIUM BICARBONATE 650 MG TABLET PO SCH ×3 (05:38→21:34)
[2021-05-31] MEDS: INSULIN SLIDING SCALE (NOVOLOG) 1 VIAL SQ SCH ×3 (06:02→17:02)
[2021-05-31] MEDS: OLANZapine 5 MG TABLET PO SCH ×2 (09:20→21:34)
[2021-05-31] MEDS: AMOX TR/POT CLAV 500MG/125MG TABLETS (FP) PO SCH ×2 (09:20→17:05)
[2021-05-31] MEDS: CARVEDILOL 25 MG TABLET (FP) PO SCH ×2 (09:20→21:34)
[2021-05-31] MEDS: APIXABAN 5 MG TABLET PO SCH ×2 (09:21→21:34)
[2021-05-31] MEDS: ZINC OXIDE 20% TOPICAL OINTMENT 30 GM TUBE TP SCH ×2 (09:23→21:35)
[2021-05-31] MEDS: MULTIVITAMINS (DAILY MVI) TABLET (FP) PO SCH (09:25)
[2021-05-31] MEDS: CHOLECALCIFEROL (VIT D3) 1,000 UNIT (25 MCG) TABLET PO SCH (09:26)
[2021-05-31] MEDS: ALLOPURINOL 100 MG TABLET (FP) PO SCH (09:26)
[2021-05-31] MEDS: MELATONIN 5 MG TABLETS PO PRN (21:34)
[2021-05-31] MEDS: LATANOPROST 0.005% OPHTH SOLN 2.5ML BOTTLE OU SCH (21:35)
[2021-06-01] MEDS: SODIUM BICARBONATE 650 MG TABLET PO SCH ×4 (06:13→22:04)
[2021-06-01] MEDS: INSULIN SLIDING SCALE (NOVOLOG) 1 VIAL SQ SCH ×3 (06:14→18:14)
[2021-06-01 08:21] LABS: CALCIUM 8.6 mg/dL (8.5-10.1)
[2021-06-01 08:22] LABS: BLOOD UREA NITROGEN 41.1 mg/dL (7-18)
[2021-06-01 08:25] LABS: CREATININE 3.5 mg/dL (0.55-1.3)
[2021-06-01] MEDS: CHOLECALCIFEROL (VIT D3) 1,000 UNIT (25 MCG) TABLET PO SCH (09:37)
[2021-06-01] MEDS: APIXABAN 5 MG TABLET PO SCH ×2 (09:38→22:04)
[2021-06-01] MEDS: OLANZapine 5 MG TABLET PO SCH ×2 (09:38→22:04)
[2021-06-01] MEDS: ALLOPURINOL 100 MG TABLET (FP) PO SCH (09:39)
[2021-06-01] MEDS: CARVEDILOL 25 MG TABLET (FP) PO SCH ×2 (09:39→22:04)
[2021-06-01] MEDS: AMOX TR/POT CLAV 500MG/125MG TABLETS (FP) PO SCH ×2 (09:39→18:16)
[2021-06-01] MEDS: ZINC OXIDE 20% TOPICAL OINTMENT 30 GM TUBE TP SCH ×2 (09:40→22:05)
[2021-06-01] MEDS: MULTIVITAMINS (DAILY MVI) TABLET (FP) PO SCH (09:40)
[2021-06-01] MEDS ORDERED: HALOPERIDOL LACTATE 5 MG/ML IM ONE (11:00)
[2021-06-01 11:07] LABS: SARS-CoV-2 NAA Not Detected (Not Detected)
[2021-06-01] MEDS: SODIUM CHLORIDE 1,000 ML IV SCH (18:16)
[2021-06-01] MEDS: QUEtiapine FUMARATE 25 MG TABLET PO SCH (22:04)
[2021-06-01] MEDS: LATANOPROST 0.005% OPHTH SOLN 2.5ML BOTTLE OU SCH (22:05)
[2021-06-02] MEDS: SODIUM BICARBONATE 650 MG TABLET PO SCH ×3 (05:56→21:40)
[2021-06-02] MEDS: INSULIN SLIDING SCALE (NOVOLOG) 1 VIAL SQ SCH ×3 (06:45→16:52)
[2021-06-02 09:41] LABS: HEMATOCRIT 40.3 % (35.4-49); HEMOGLOBIN 12.9 GM/dL (11.7-16.9); MCH 30.1 pg (25.7-33.7); MEAN PLT VOLUME 8.7 fl (7.5-11.1); PLATELET COUNT 393 10^3/uL (134-434); RBC 4.29 M/mm3 (4.00-5.60); WHITE BLOOD COUNT 6.7 K/mm3 (4.0-10.0)
[2021-06-02] MEDS: ALLOPURINOL 100 MG TABLET (FP) PO SCH (09:49)
[2021-06-02] MEDS: AMOX TR/POT CLAV 500MG/125MG TABLETS (FP) PO SCH (09:49)
[2021-06-02] MEDS: MULTIVITAMINS (DAILY MVI) TABLET (FP) PO SCH (09:50)
[2021-06-02] MEDS: CHOLECALCIFEROL (VIT D3) 1,000 UNIT (25 MCG) TABLET PO SCH (09:50)
[2021-06-02] MEDS: OLANZapine 5 MG TABLET PO SCH ×2 (09:50→21:40)
[2021-06-02] MEDS: APIXABAN 5 MG TABLET PO SCH ×2 (09:50→21:41)
[2021-06-02] MEDS: CARVEDILOL 25 MG TABLET (FP) PO SCH ×2 (09:50→21:41)
[2021-06-02 09:58] LABS: ALBUMIN 2.5 g/dl (3.4-5.0); CALCIUM 8.5 mg/dL (8.5-10.1)
[2021-06-02 09:59] LABS: BLOOD UREA NITROGEN 42.5 mg/dL (7-18); MAGNESIUM 2.2 mg/dL (1.8-2.4)
[2021-06-02] MEDS: ZINC OXIDE 20% TOPICAL OINTMENT 30 GM TUBE TP SCH ×2 (10:00→21:54)
[2021-06-02 10:01] LABS: CREATININE 3.2 mg/dL (0.55-1.3)
[2021-06-02 10:02] LABS: PHOSPHOROUS 4.5 mg/dL (2.5-4.9)
[2021-06-02 10:03] LABS: BILIRUBIN,TOTAL 0.7 mg/dL (0.2-1)
[2021-06-02] MEDS ORDERED: ALBUTEROL SO4 HFA INHALER IH PRN (10:15)
[2021-06-02 12:11] LABS: ANISOCYTOSIS 2+; MACROCYTOSIS 2+
[2021-06-02] MEDS ORDERED: AMOX TR/POT CLAV 500MG/125MG TABLETS (FP) PO SCH (17:30)
[2021-06-02] MEDS: QUEtiapine FUMARATE 25 MG TABLET PO SCH (21:41)
[2021-06-02] MEDS: MELATONIN 5 MG TABLETS PO PRN (21:41)
[2021-06-02] MEDS: LATANOPROST 0.005% OPHTH SOLN 2.5ML BOTTLE OU SCH (22:00)
[2021-06-03] MEDS: SODIUM CHLORIDE 1,000 ML IV SCH ×2 (02:06→17:30)
[2021-06-03] MEDS: SODIUM BICARBONATE 650 MG TABLET PO SCH ×3 (06:18→21:24)
[2021-06-03] MEDS: INSULIN SLIDING SCALE (NOVOLOG) 1 VIAL SQ SCH ×3 (07:01→17:27)
[2021-06-03 09:30] LABS: URIC ACID 9.1 mg/dL (2.6-7.2)
[2021-06-03] MEDS: ALLOPURINOL 100 MG TABLET (FP) PO SCH (10:12)
[2021-06-03] MEDS: OLANZapine 5 MG TABLET PO SCH ×2 (10:13→21:24)
[2021-06-03] MEDS: CHOLECALCIFEROL (VIT D3) 1,000 UNIT (25 MCG) TABLET PO SCH (10:13)
[2021-06-03] MEDS: APIXABAN 5 MG TABLET PO SCH ×2 (10:13→21:24)
[2021-06-03] MEDS: MULTIVITAMINS (DAILY MVI) TABLET (FP) PO SCH (10:13)
[2021-06-03] MEDS: CARVEDILOL 25 MG TABLET (FP) PO SCH ×2 (10:13→21:24)
[2021-06-03] MEDS: ZINC OXIDE 20% TOPICAL OINTMENT 30 GM TUBE TP SCH ×2 (11:52→21:25)
[2021-06-03 15:09] LABS: CALCIUM 8.6 mg/dL (8.5-10.1)
[2021-06-03 15:10] LABS: BLOOD UREA NITROGEN 39.2 mg/dL (7-18)
[2021-06-03 15:13] LABS: CREATININE 2.6 mg/dL (0.55-1.3)
[2021-06-03] MEDS: QUEtiapine FUMARATE 25 MG TABLET PO SCH (21:24)
[2021-06-03] MEDS: MELATONIN 5 MG TABLETS PO PRN (21:24)
[2021-06-03] MEDS: LATANOPROST 0.005% OPHTH SOLN 2.5ML BOTTLE OU SCH (21:25)
[2021-06-04] MEDS: SODIUM BICARBONATE 650 MG TABLET PO SCH ×3 (06:17→21:57)
[2021-06-04] MEDS: SODIUM CHLORIDE 1,000 ML IV SCH ×2 (06:18→16:46)
[2021-06-04] MEDS: INSULIN SLIDING SCALE (NOVOLOG) 1 VIAL SQ SCH ×3 (06:21→16:45)
[2021-06-04] MEDS: OLANZapine 5 MG TABLET PO SCH ×2 (10:16→21:57)
[2021-06-04] MEDS: CARVEDILOL 25 MG TABLET (FP) PO SCH ×2 (10:16→21:57)
[2021-06-04] MEDS: CHOLECALCIFEROL (VIT D3) 1,000 UNIT (25 MCG) TABLET PO SCH (10:16)
[2021-06-04] MEDS: APIXABAN 5 MG TABLET PO SCH ×2 (10:16→21:57)
[2021-06-04] MEDS: ALLOPURINOL 100 MG TABLET (FP) PO SCH (10:16)
[2021-06-04] MEDS: MULTIVITAMINS (DAILY MVI) TABLET (FP) PO SCH (10:17)
[2021-06-04] MEDS: ZINC OXIDE 20% TOPICAL OINTMENT 30 GM TUBE TP SCH ×2 (10:17→21:57)
[2021-06-04] MEDS: QUEtiapine FUMARATE 25 MG TABLET PO SCH (21:57)
[2021-06-04] MEDS: MELATONIN 5 MG TABLETS PO PRN (21:57)
[2021-06-04] MEDS: LATANOPROST 0.005% OPHTH SOLN 2.5ML BOTTLE OU SCH (21:57)
[2021-06-05] MEDS: SODIUM CHLORIDE 1,000 ML IV SCH (01:11)
[2021-06-05] MEDS: SODIUM BICARBONATE 650 MG TABLET PO SCH ×3 (05:39→21:46)
[2021-06-05] MEDS: INSULIN SLIDING SCALE (NOVOLOG) 1 VIAL SQ SCH ×3 (06:04→17:07)
[2021-06-05 08:56] LABS: CALCIUM 8.3 mg/dL (8.5-10.1)
[2021-06-05 08:57] LABS: ALBUMIN 2.6 g/dl (3.4-5.0); BLOOD UREA NITROGEN 30.7 mg/dL (7-18)
[2021-06-05 09:00] LABS: CREATININE 2.1 mg/dL (0.55-1.3)
[2021-06-05 09:02] LABS: BILIRUBIN,TOTAL 0.6 mg/dL (0.2-1); TOT PROT 6.1 g/dl (6.4-8.2)
[2021-06-05] MEDS: CARVEDILOL 25 MG TABLET (FP) PO SCH ×2 (09:30→21:46)
[2021-06-05] MEDS: ALLOPURINOL 100 MG TABLET (FP) PO SCH (09:30)
[2021-06-05] MEDS: OLANZapine 5 MG TABLET PO SCH ×2 (09:30→21:46)
[2021-06-05] MEDS: CHOLECALCIFEROL (VIT D3) 1,000 UNIT (25 MCG) TABLET PO SCH (09:31)
[2021-06-05] MEDS: ZINC OXIDE 20% TOPICAL OINTMENT 30 GM TUBE TP SCH ×2 (09:31→21:51)
[2021-06-05] MEDS: APIXABAN 5 MG TABLET PO SCH ×2 (09:31→21:46)
[2021-06-05] MEDS: MULTIVITAMINS (DAILY MVI) TABLET (FP) PO SCH (09:31)
[2021-06-05] MEDS: ACETAMINOPHEN 325 MG TABLET (FP) PO PRN (10:57)
[2021-06-05] MEDS: QUEtiapine FUMARATE 25 MG TABLET PO SCH (21:46)
[2021-06-05] MEDS: LATANOPROST 0.005% OPHTH SOLN 2.5ML BOTTLE OU SCH (21:51)
[2021-06-06] MEDS: SODIUM BICARBONATE 650 MG TABLET PO SCH ×3 (05:37→21:31)
[2021-06-06] MEDS: INSULIN SLIDING SCALE (NOVOLOG) 1 VIAL SQ SCH ×3 (06:10→16:50)
[2021-06-06] MEDS ORDERED: INSULIN (NOVOLOG) ASPART 100 UNITS/ML 10ML VIAL ONE (06:59)
[2021-06-06 09:31] LABS: BASO % 0.9 % (0-2.0); EOS % 0.9 % (0-4.5); HEMATOCRIT 41.3 % (35.4-49); HEMOGLOBIN 13.1 GM/dL (11.7-16.9); LYMPH % 31.3 % (8-40); MCH 30.3 pg (25.7-33.7); MCHC 31.7 g/dl (32.0-35.9); MEAN CELL VOLUME 95.4 fl (80-96); MEAN PLT VOLUME 8.6 fl (7.5-11.1); MONO % 11.2 % (3.8-10.2); NEUT % 55.7 % (42.8-82.8); PLATELET COUNT 338 10^3/uL (134-434); RBC 4.33 M/mm3 (4.00-5.60); RDW 18.9 % (11.9-15.9); WHITE BLOOD COUNT 5.9 K/mm3 (4.0-10.0)
[2021-06-06 09:55] LABS: CALCIUM 9.2 mg/dL (8.5-10.1)
[2021-06-06 09:56] LABS: ALBUMIN 2.8 g/dl (3.4-5.0); BLOOD UREA NITROGEN 31.4 mg/dL (7-18)
[2021-06-06 09:59] LABS: CREATININE 2.1 mg/dL (0.55-1.3)
[2021-06-06 10:00] LABS: BILIRUBIN,TOTAL 0.7 mg/dL (0.2-1); TOT PROT 6.4 g/dl (6.4-8.2)
[2021-06-06] MEDS: ALLOPURINOL 100 MG TABLET (FP) PO SCH (11:34)
[2021-06-06] MEDS: CHOLECALCIFEROL (VIT D3) 1,000 UNIT (25 MCG) TABLET PO SCH (11:34)
[2021-06-06] MEDS: OLANZapine 5 MG TABLET PO SCH ×2 (11:37→21:31)
[2021-06-06] MEDS: MULTIVITAMINS (DAILY MVI) TABLET (FP) PO SCH (11:37)
[2021-06-06] MEDS: CARVEDILOL 25 MG TABLET (FP) PO SCH ×2 (11:37→21:31)
[2021-06-06] MEDS: APIXABAN 5 MG TABLET PO SCH ×2 (11:37→21:31)
[2021-06-06] MEDS: ZINC OXIDE 20% TOPICAL OINTMENT 30 GM TUBE TP SCH ×2 (15:12→21:31)
[2021-06-06] MEDS: LATANOPROST 0.005% OPHTH SOLN 2.5ML BOTTLE OU SCH (21:31)
[2021-06-06] MEDS: QUEtiapine FUMARATE 25 MG TABLET PO SCH (21:31)
[2021-06-07] MEDS: ACETAMINOPHEN 325 MG TABLET (FP) PO PRN (01:29)
[2021-06-07] MEDS: MELATONIN 5 MG TABLETS PO PRN (01:29)
[2021-06-07] MEDS: SODIUM BICARBONATE 650 MG TABLET PO SCH ×2 (05:41→13:39)
[2021-06-07] MEDS: INSULIN SLIDING SCALE (NOVOLOG) 1 VIAL SQ SCH ×3 (06:32→18:28)
[2021-06-07] MEDS: OLANZapine 5 MG TABLET PO SCH (10:55)
[2021-06-07] MEDS: APIXABAN 5 MG TABLET PO SCH (10:56)
[2021-06-07] MEDS: ALLOPURINOL 100 MG TABLET (FP) PO SCH (10:56)
[2021-06-07] MEDS: MULTIVITAMINS (DAILY MVI) TABLET (FP) PO SCH (10:56)
[2021-06-07] MEDS: ZINC OXIDE 20% TOPICAL OINTMENT 30 GM TUBE TP SCH (10:56)
[2021-06-07] MEDS: CHOLECALCIFEROL (VIT D3) 1,000 UNIT (25 MCG) TABLET PO SCH (10:56)
[2021-06-07] MEDS: CARVEDILOL 25 MG TABLET (FP) PO SCH (10:56)
[2021-06-07 13:08] LABS: SARS-CoV-2 NAA Not Detected (Not Detected)
[2021-06-07 13:24] LABS: CALCIUM 8.7 mg/dL (8.5-10.1)
[2021-06-07 13:25] LABS: BLOOD UREA NITROGEN 28.8 mg/dL (7-18)
[2021-06-07 13:28] LABS: CREATININE 2.1 mg/dL (0.55-1.3)
[2021-06-07 14:43] VITALS: BP 105/81; PULSE 81
[2021-06-07 15:26] VITALS: TEMP 97.8
== END 2021-06-07 21:29 | DRG 445 ==
LOC: JER 04:27 → JERBED 07:30 → J7W 20:42 → J4W 05-30 13:10 → J8W 06-01 19:00
PROVIDERS: ADMIT Internal Medicine; ATTEND Internal Medicine
DX: K81.0 Acute cholecystitis (principal); I50.22 Chronic systolic (congestive) heart failure; S32.040A Wedge compression fracture of fourth lumbar vertebra, initial encounter for closed fracture; N17.9 Acute kidney failure, unspecified; I48.19 Other persistent atrial fibrillation; I13.0 Hypertensive heart and chronic kidney disease with heart failure and stage 1 through stage 4 chronic kidney disease, or unspecified chronic kidney disease; F03.91 Unspecified dementia, unspecified severity, with behavioral disturbance; I95.9 Hypotension, unspecified; K04.7 Periapical abscess without sinus; R31.29 Other microscopic hematuria; N18.9 Chronic kidney disease, unspecified; E78.5 Hyperlipidemia, unspecified; I25.119 Atherosclerotic heart disease of native coronary artery with unspecified angina pectoris; Z98.61 Coronary angioplasty status; E66.9 Obesity, unspecified; Z68.35 Body mass index [BMI] 35.0-35.9, adult; E87.6 Hypokalemia; E11.22 Type 2 diabetes mellitus with diabetic chronic kidney disease
CPT/HCPCS: 36415; 36600; 70450-TC; 71045-TC-FY; 71250-TC; 72125-TC; 72128-TC; 72131-TC; 74176-TC; 76705-TC; 78226-TC; 80048; 80053; 81003; 82570; 82803; 82962; 83690; 83735; 84100; 84156; 84300; 84484; 84550; 85025; 85610; 85730; 86850; 86900; 86901; 87040; 87086; 93005; 93010; 99291; A9537; C9803; U0003; U0005

== ENCOUNTER 2021-06-08 17:55 | Inpatient (IN) | payer OTHER ==
[2021-06-08 19:10] VITALS: BMI 38.5
[2021-06-08 21:10] LABS: BASO % 0.7 % (0-2.0); EOS % 1.1 % (0-4.5); HEMATOCRIT 42.1 % (35.4-49); HEMOGLOBIN 13.4 GM/dL (11.7-16.9); MCH 29.9 pg (25.7-33.7); MCHC 31.8 g/dl (32.0-35.9); MEAN CELL VOLUME 94.2 fl (80-96); MEAN PLT VOLUME 8.6 fl (7.5-11.1); MONO % 11.7 % (3.8-10.2); NEUT % 48.5 % (42.8-82.8); PLATELET COUNT 356 10^3/uL (134-434); RBC 4.47 M/mm3 (4.00-5.60); WHITE BLOOD COUNT 7.5 K/mm3 (4.0-10.0)
[2021-06-08 21:53] LABS: ALBUMIN 2.9 g/dl (3.4-5.0); BLOOD UREA NITROGEN 34.4 mg/dL (7-18); CREATININE 2.6 mg/dL (0.55-1.3); TOT PROT 6.8 g/dl (6.4-8.2)
[2021-06-08] MEDS ORDERED: FUROSEMIDE 40 MG/4 ML INJECTABLE VIAL IVPUSH ONE (22:09)
[2021-06-08] MEDS ORDERED: FUROSEMIDE 40 MG/4 ML INJECTABLE VIAL ONE (22:49)
[2021-06-09 00:45] LABS: CHLORIDE 111 mmol/L (98-107); SODIUM 141 mmol/L (136-145)
[2021-06-09 00:46] LABS: BLOOD UREA NITROGEN 33.8 mg/dL (7-18); CALCIUM 8.8 mg/dL (8.5-10.1); CO2 26 mmol/L (21-32); GLUCOSE,RANDOM 127 mg/dL (74-106)
[2021-06-09 00:50] LABS: CREATININE 2.7 mg/dL (0.55-1.3)
[2021-06-09 00:51] LABS: ANION GAP 5 MMOL/L (8-16)
[2021-06-09] MEDS ORDERED: ACETAMINOPHEN 325 MG TABLET (FP) PO PRN (05:14)
[2021-06-09] MEDS ORDERED: POLYETHYLENE GLYCOL (HEALTHYLAX) 3350 17 GM PACKET PO PRN (05:14)
[2021-06-09] MEDS ORDERED: ALBUTEROL SO4 HFA INHALER IH PRN (05:14)
[2021-06-09] MEDS ORDERED: MELATONIN 5 MG TABLETS PO PRN (05:14)
[2021-06-09] MEDS: SODIUM BICARBONATE 650 MG TABLET PO SCH ×3 (06:15→21:23)
[2021-06-09] MEDS ORDERED: ALBUTEROL SO4 0.083% IH SOL 2.5 MG/3 ML VIAL.NEB. NEB ONE (06:20)
[2021-06-09 07:59] LABS: HEMATOCRIT 41.3 % (35.4-49); HEMOGLOBIN 12.9 GM/dL (11.7-16.9); MCH 29.8 pg (25.7-33.7); MCHC 31.4 g/dl (32.0-35.9); MEAN CELL VOLUME 94.9 fl (80-96); MEAN PLT VOLUME 8.2 fl (7.5-11.1); PLATELET COUNT 359 10^3/uL (134-434); RBC 4.35 M/mm3 (4.00-5.60); WHITE BLOOD COUNT 6.9 K/mm3 (4.0-10.0)
[2021-06-09 08:21] LABS: CALCIUM 9.5 mg/dL (8.5-10.1)
[2021-06-09 08:22] LABS: BLOOD UREA NITROGEN 35.3 mg/dL (7-18)
[2021-06-09 08:25] LABS: CREATININE 2.5 mg/dL (0.55-1.3)
[2021-06-09 09:38] LABS: ANISOCYTOSIS 0; HELMET CELLS 0; HOWELL-JOLLY BODIES 0; MACROCYTOSIS 0; OVALOCYTE 0; PLATELET ESTIMATE NORMAL; ROULEAU 0; SICKELED CELLS 0; TARGET CELLS 0; TEAR DROP CELLS 0; TOXIC GRANULATION 0
[2021-06-09] MEDS ORDERED: CARVEDILOL 12.5 MG TABLET (FP) PO SCH (10:00)
[2021-06-09] MEDS: CARVEDILOL 25 MG TABLET (FP) PO SCH ×2 (11:48→21:23)
[2021-06-09] MEDS: ZINC OXIDE 20% TOPICAL OINTMENT 30 GM TUBE TP SCH ×2 (11:48→23:27)
[2021-06-09] MEDS: APIXABAN 5 MG TABLET PO SCH ×2 (11:48→21:23)
[2021-06-09] MEDS: OLANZapine 5 MG TABLET PO SCH (11:48)
[2021-06-09] MEDS: MULTIVITAMINS (DAILY MVI) TABLET (FP) PO SCH (11:48)
[2021-06-09] MEDS ORDERED: ATORVASTATIN CA 40 MG TABLET (FP) PO SCH (22:00)
[2021-06-09] MEDS ORDERED: LATANOPROST 0.005% OPHTH SOLN 2.5ML BOTTLE OU SCH (22:00)
[2021-06-10] MEDS: SODIUM BICARBONATE 650 MG TABLET PO SCH ×3 (06:17→21:30)
[2021-06-10] MEDS ORDERED: PNEUMOC 13-VAL CONJ-DIP CRM/PF 0.5 ML DISP.SYRIN IM ONE (09:00)
[2021-06-10] MEDS: MULTIVITAMINS (DAILY MVI) TABLET (FP) PO SCH (10:12)
[2021-06-10] MEDS: CARVEDILOL 25 MG TABLET (FP) PO SCH ×2 (10:12→21:30)
[2021-06-10] MEDS: APIXABAN 5 MG TABLET PO SCH ×2 (10:12→21:29)
[2021-06-10] MEDS: OLANZapine 5 MG TABLET PO SCH (10:13)
[2021-06-10] MEDS: ZINC OXIDE 20% TOPICAL OINTMENT 30 GM TUBE TP SCH ×2 (11:00→21:30)
[2021-06-10 13:35] LABS: CALCIUM 9.1 mg/dL (8.5-10.1)
[2021-06-10 13:36] LABS: BLOOD UREA NITROGEN 34.5 mg/dL (7-18)
[2021-06-10 13:39] LABS: CREATININE 2.2 mg/dL (0.55-1.3)
[2021-06-10] MEDS ORDERED: ACETAMINOPHEN 325 MG TABLET (FP) PO PRN (19:15)
[2021-06-10] MEDS ORDERED: POLYETHYLENE GLYCOL (HEALTHYLAX) 3350 17 GM PACKET PO PRN (19:15)
[2021-06-10] MEDS: hydrALAZINE HCL 25 MG TABLET (FP) PO SCH (21:29)
[2021-06-10] MEDS: ATORVASTATIN CA 40 MG TABLET (FP) PO SCH (21:29)
[2021-06-10] MEDS: MELATONIN 5 MG TABLETS PO PRN (21:30)
[2021-06-10] MEDS: LATANOPROST 0.005% OPHTH SOLN 2.5ML BOTTLE OU SCH (21:31)
[2021-06-11] MEDS ORDERED: LORazepam 2 MG/ML SDV VIAL IVPUSH ONE (01:43)
[2021-06-11] MEDS: ALBUTEROL SO4 HFA INHALER IH PRN ×2 (05:27→21:38)
[2021-06-11] MEDS: SODIUM BICARBONATE 650 MG TABLET PO SCH ×3 (05:27→21:37)
[2021-06-11 07:57] LABS: CALCIUM 9.1 mg/dL (8.5-10.1)
[2021-06-11 07:58] LABS: BLOOD UREA NITROGEN 33.6 mg/dL (7-18)
[2021-06-11 08:01] LABS: CREATININE 2.1 mg/dL (0.55-1.3)
[2021-06-11] MEDS: APIXABAN 5 MG TABLET PO SCH ×2 (09:15→21:38)
[2021-06-11] MEDS: CARVEDILOL 25 MG TABLET (FP) PO SCH ×2 (09:15→21:38)
[2021-06-11] MEDS: hydrALAZINE HCL 25 MG TABLET (FP) PO SCH ×2 (09:15→21:38)
[2021-06-11] MEDS: MULTIVITAMINS (DAILY MVI) TABLET (FP) PO SCH (09:17)
[2021-06-11] MEDS: ZINC OXIDE 20% TOPICAL OINTMENT 30 GM TUBE TP SCH ×2 (09:17→21:38)
[2021-06-11] MEDS: OLANZapine 5 MG TABLET PO SCH (09:17)
[2021-06-11] MEDS: ISOSORBIDE MONONITRATE 30 MG TAB.SR.24H (FP) PO SCH (09:17)
[2021-06-11] MEDS: DEXTROSE 5%-WATER - 1,000 ML IV SCH (18:24)
[2021-06-11] MEDS ORDERED: LORazepam 2 MG/ML SDV VIAL IVPUSH STA ×2 (19:56→22:41)
[2021-06-11] MEDS: ATORVASTATIN CA 40 MG TABLET (FP) PO SCH (21:37)
[2021-06-11] MEDS: MELATONIN 5 MG TABLETS PO PRN (21:38)
[2021-06-11] MEDS: LATANOPROST 0.005% OPHTH SOLN 2.5ML BOTTLE OU SCH (21:38)
[2021-06-12] MEDS: SODIUM BICARBONATE 650 MG TABLET PO SCH ×3 (05:31→22:15)
[2021-06-12] MEDS: ISOSORBIDE MONONITRATE 30 MG TAB.SR.24H (FP) PO SCH (09:33)
[2021-06-12] MEDS: hydrALAZINE HCL 25 MG TABLET (FP) PO SCH ×2 (09:34→22:15)
[2021-06-12] MEDS: VITAMIN B COMP W-C 1 EA TABLET (NEPHRO-VITE) PO SCH (09:34)
[2021-06-12] MEDS: APIXABAN 5 MG TABLET PO SCH ×2 (09:34→22:15)
[2021-06-12] MEDS: ZINC OXIDE 20% TOPICAL OINTMENT 30 GM TUBE TP SCH ×2 (09:34→22:26)
[2021-06-12] MEDS: CARVEDILOL 25 MG TABLET (FP) PO SCH ×2 (09:34→22:15)
[2021-06-12] MEDS: MULTIVITAMINS (DAILY MVI) TABLET (FP) PO SCH (09:34)
[2021-06-12] MEDS: OLANZapine 5 MG TABLET PO SCH (09:34)
[2021-06-12] MEDS: ATORVASTATIN CA 40 MG TABLET (FP) PO SCH (22:15)
[2021-06-12] MEDS: LATANOPROST 0.005% OPHTH SOLN 2.5ML BOTTLE OU SCH (22:24)
[2021-06-12] MEDS: ALBUTEROL SO4 HFA INHALER IH PRN (22:24)
[2021-06-12] MEDS: DEXTROSE 5%-WATER - 1,000 ML IV SCH (22:25)
[2021-06-12] MEDS ORDERED: LORazepam 2 MG/ML SDV VIAL IVPUSH ONE (23:36)
[2021-06-13] MEDS: SODIUM BICARBONATE 650 MG TABLET PO SCH ×3 (06:48→21:47)
[2021-06-13] MEDS: APIXABAN 5 MG TABLET PO SCH ×2 (10:44→21:46)
[2021-06-13] MEDS: hydrALAZINE HCL 25 MG TABLET (FP) PO SCH ×2 (10:44→21:47)
[2021-06-13] MEDS: ISOSORBIDE MONONITRATE 30 MG TAB.SR.24H (FP) PO SCH (10:44)
[2021-06-13] MEDS: CARVEDILOL 25 MG TABLET (FP) PO SCH ×2 (10:44→21:46)
[2021-06-13] MEDS: VITAMIN B COMP W-C 1 EA TABLET (NEPHRO-VITE) PO SCH ×2 (10:45→13:30)
[2021-06-13] MEDS: OLANZapine 5 MG TABLET PO SCH (10:45)
[2021-06-13] MEDS: MULTIVITAMINS (DAILY MVI) TABLET (FP) PO SCH (10:45)
[2021-06-13] MEDS: ZINC OXIDE 20% TOPICAL OINTMENT 30 GM TUBE TP SCH ×2 (10:45→21:48)
[2021-06-13 16:02] LABS: HEMATOCRIT 38.7 % (35.4-49); HEMOGLOBIN 12.1 GM/dL (11.7-16.9); MCH 29.6 pg (25.7-33.7); MCHC 31.2 g/dl (32.0-35.9); MEAN CELL VOLUME 95.1 fl (80-96); MEAN PLT VOLUME 8.2 fl (7.5-11.1); PLATELET COUNT 271 10^3/uL (134-434); RBC 4.07 M/mm3 (4.00-5.60); RDW 19.9 % (11.9-15.9); WHITE BLOOD COUNT 6.4 K/mm3 (4.0-10.0)
[2021-06-13 16:24] LABS: CALCIUM 9.5 mg/dL (8.5-10.1)
[2021-06-13 16:25] LABS: ALBUMIN 2.7 g/dl (3.4-5.0); BLOOD UREA NITROGEN 32.6 mg/dL (7-18)
[2021-06-13 16:28] LABS: CREATININE 2.1 mg/dL (0.55-1.3)
[2021-06-13] MEDS ORDERED: SODIUM ZIRCONIUM CYCLOSILICATE (LOKELMA) 5 GM PACKET PO ONE (17:30)
[2021-06-13] MEDS ORDERED: SODIUM POLYSTYRENE SULFONATE 15 GM/60 ML BOTTLE PO ONE (17:45)
[2021-06-13] MEDS: DEXTROSE 5%-WATER - 1,000 ML IV SCH (18:35)
[2021-06-13] MEDS: ATORVASTATIN CA 40 MG TABLET (FP) PO SCH (21:46)
[2021-06-13] MEDS: LATANOPROST 0.005% OPHTH SOLN 2.5ML BOTTLE OU SCH (21:48)
[2021-06-14] MEDS: SODIUM BICARBONATE 650 MG TABLET PO SCH ×2 (05:32→13:32)
[2021-06-14 09:07] LABS: BASO % 0.8 % (0-2.0); EOS % 0.4 % (0-4.5); HEMATOCRIT 38.3 % (35.4-49); MCH 29.7 pg (25.7-33.7); MCHC 31.4 g/dl (32.0-35.9); MEAN CELL VOLUME 94.6 fl (80-96); MEAN PLT VOLUME 8.4 fl (7.5-11.1); MONO % 9.4 % (3.8-10.2); NEUT % 65.4 % (42.8-82.8); PLATELET COUNT 218 10^3/uL (134-434); RBC 4.05 M/mm3 (4.00-5.60); RDW 19.1 % (11.9-15.9); WHITE BLOOD COUNT 9.4 K/mm3 (4.0-10.0)
[2021-06-14 09:18] LABS: ALBUMIN 2.6 g/dl (3.4-5.0); CALCIUM 8.7 mg/dL (8.5-10.1)
[2021-06-14 09:19] LABS: BLOOD UREA NITROGEN 32.4 mg/dL (7-18)
[2021-06-14 09:21] LABS: CREATININE 2.2 mg/dL (0.55-1.3)
[2021-06-14 09:23] LABS: BILIRUBIN,TOTAL 1.2 mg/dL (0.2-1)
[2021-06-14 09:26] VITALS: BP 122/72; PULSE 92; TEMP 97.5
[2021-06-14] MEDS: hydrALAZINE HCL 25 MG TABLET (FP) PO SCH (11:20)
[2021-06-14] MEDS: APIXABAN 5 MG TABLET PO SCH (11:20)
[2021-06-14] MEDS: MULTIVITAMINS (DAILY MVI) TABLET (FP) PO SCH (11:31)
[2021-06-14] MEDS: VITAMIN B COMP W-C 1 EA TABLET (NEPHRO-VITE) PO SCH (11:31)
[2021-06-14] MEDS: CARVEDILOL 25 MG TABLET (FP) PO SCH (11:32)
[2021-06-14] MEDS: ISOSORBIDE MONONITRATE 30 MG TAB.SR.24H (FP) PO SCH (11:32)
[2021-06-14] MEDS: OLANZapine 5 MG TABLET PO SCH (12:38)
[2021-06-14] MEDS ORDERED: OLANZapine 5 MG TABLET PO SCH (22:00)
== END 2021-06-14 15:31 | DRG 291 ==
LOC: JER 17:55 → JERBED 22:43 → OBSVTOIN 06-09 12:40 → J4W 06-09 14:23 → J4S 06-10 19:15
PROVIDERS: ADMIT Internal Medicine; ATTEND Internal Medicine
DX: I13.0 Hypertensive heart and chronic kidney disease with heart failure and stage 1 through stage 4 chronic kidney disease, or unspecified chronic kidney disease (principal); I50.23 Acute on chronic systolic (congestive) heart failure; N17.9 Acute kidney failure, unspecified; I48.19 Other persistent atrial fibrillation; J98.11 Atelectasis; J90 Pleural effusion, not elsewhere classified; E87.0 Hyperosmolality and hypernatremia; I42.9 Cardiomyopathy, unspecified; E11.22 Type 2 diabetes mellitus with diabetic chronic kidney disease; N18.9 Chronic kidney disease, unspecified; I25.119 Atherosclerotic heart disease of native coronary artery with unspecified angina pectoris; E78.5 Hyperlipidemia, unspecified; E87.5 Hyperkalemia; R07.9 Chest pain, unspecified; Z68.38 Body mass index [BMI] 38.0-38.9, adult; E66.9 Obesity, unspecified; Z98.61 Coronary angioplasty status
CPT/HCPCS: 36415; 70450-TC; 71045-TC-FY; 80048; 80053; 83880; 84484; 85025; 85027; 90670; 93005; 93010; 99285-25; C9803; G0378; U0003; U0005